=== PATIENT | female | born 1985 | race Caucasian/White ===

== ENCOUNTER 2018-08-06 21:55 | Emergency (ER) | payer OTHER ==
[~2018-08-06] VITALS: Ht 160 cm; Wt 77.1 kg
[2018-08-06 22:06] VITALS: BP 129/76
== END 2018-08-07 01:22 | disposition left against medical advice (07) ==
LOC: EDBD 21:55 → ER 22:01
DX: M25.532 Pain in left wrist (principal); Z53.21 Procedure and treatment not carried out due to patient leaving prior to being seen by health care provider
CPT/HCPCS: 73110